=== PATIENT | female | born 1995 | race Asian ===

== ENCOUNTER 2024-01-14 15:14 | Emergency (ER) | payer OTHER ==
[2024-01-14 15:21] VITALS: RESP 20; BMI 19.5
[2024-01-14] MEDS ORDERED: METOCLOPRAMIDE HCL INJECTION 10 MG/2 ML VIAL ONE (16:41)
[2024-01-14] MEDS ORDERED: ACETAMINOPHEN INJECTION 100 ML IVPB ONE (16:41)
[2024-01-14] MEDS: SODIUM CHLORIDE 0.9% 500 ML INFUS.BAG IV ONE (16:53)
[2024-01-14] MEDS: ACETAMINOPHEN 1000 MG/100 ML BAG IVPB ONE (16:54)
[2024-01-14] MEDS: METOCLOPRAMIDE HCL INJECTION 10 MG/2 ML VIAL IVPUSH ONE (16:54)
[2024-01-14 16:56] LABS: PH,URINE >= 9.0 (5.0-8.0); URINE APPEARANCE CLEAR; URINE BILIRUBIN NEGATIVE (NEGATIVE); URINE COLOR YELLOW; URINE GLUCOSE (UA) NEGATIVE (NEGATIVE); URINE KETONE NEGATIVE (NEGATIVE); URINE LEUK ESTERASE NEGATIVE (NEGATIVE); URINE NITRITE NEGATIVE (NEGATIVE); URINE PROTEIN TRACE (NEGATIVE); URINE UROBILINOGEN 0.2 mg/dL (0.2-1.0)
[2024-01-14 17:00] LABS: BASO % 0.3 % (0-2.0); HEMATOCRIT 42.4 % (32.4-45.2); HEMOGLOBIN 13.8 GM/dL (10.7-15.3); LYMPH % 9.4 % (8-40); MCH 29.8 pg (25.7-33.7); MCHC 32.6 g/dl (32.0-36.0); MEAN CELL VOLUME 91.3 fl (80-96); MEAN PLT VOLUME 9.3 fl (7.5-11.1); MONO % 1.4 % (3.8-10.2); NEUT % 88.9 % (42.8-82.8); PLATELET COUNT 218 10^3/uL (134-434); RBC 4.65 M/mm3 (3.60-5.2); RDW 11.9 % (11.6-15.6); WHITE BLOOD COUNT 11.4 K/mm3 (4.0-10.0)
[2024-01-14 17:01] LABS: HCG,QUALITATIVE URINE Negative
[2024-01-14 17:20] LABS: POTASSIUM 3.9 mmol/L (3.5-5.1)
[2024-01-14 17:21] LABS: CALCIUM 9.1 mg/dL (8.5-10.1)
[2024-01-14 17:22] LABS: BLOOD UREA NITROGEN 16.4 mg/dL (7-18)
[2024-01-14 17:25] LABS: CREATININE 0.8 mg/dL (0.55-1.3)
[2024-01-14 17:27] LABS: BILIRUBIN,TOTAL 0.4 mg/dL (0.2-1); TOT PROT 8.2 g/dl (6.4-8.2)
[2024-01-14 18:01] LABS: THROAT:GRP A STREP NOT DETECTED (NOTDETECTED)
[2024-01-14 19:27] VITALS: BP 96/56; PULSE 97; TEMP 98.1
== END 2024-01-14 19:50 | disposition home or self-care (01) ==
LOC: JER 15:14
PROC: 3E033NZ Introduction of Analgesics, Hypnotics, Sedatives into Peripheral Vein, Percutaneous Approach (ICD-10-PCS; principal; 2024-01-14)
PROC: 3E033GC Introduction of Other Therapeutic Substance into Peripheral Vein, Percutaneous Approach (ICD-10-PCS; 2024-01-14)
DX: K52.9 Noninfective gastroenteritis and colitis, unspecified (principal); R11.2 Nausea with vomiting, unspecified; Z20.822 Contact with and (suspected) exposure to COVID-19
CPT/HCPCS: 0241U-QW; 36415; 80053; 81003; 83690; 84703; 85025; 87086; 87651; 99284-25; J0131